=== PATIENT | male | born 1950 | race Caucasian/White ===

== ENCOUNTER → 2018-08-05 | Outpatient (CLI) | payer MEDICARE, OTHER ==
--- NOTE | 2018-08-06 10:04 | MR ---
EXAMINATION TYPE: MR shoulder LT wo con DATE OF EXAM: 08/05/2018 COMPARISON: Outside shoulder x-ray dated 04/01/2018 HISTORY: Pain in left shoulder TECHNIQUE: Multiplanar, multisequence imaging of the left shoulder is performed without contrast. FINDINGS: There is complete loss of joint space of the glenohumeral joint with loss of articular cartilage. The re is a small joint effusion. Grossly the inferior glenohumeral ligament remains intact. Abnormal mar row signal within the glenoid with cystic changes and marrow edema likely reactive due to severe arth ritic change with complete loss of articular cartilage. Degenerative superior and inferior labral tears are suspected. There is hypertrophic spurring and narrowing of the AC joint with impingement of the supraspinatus te ndon and muscle. There is no evidence of retraction of the rotator cuff tendons. Intrasubstance signa l seen along the undersurface of the anterior fibers of the supraspinatus tendon measuring approximat diane 7 mm compatible with a partial undersurface tear. There is fluid surrounding the bicipital tendon which remains within the bicipital groove. Findings c ompatible with tendinosis. Intracapsular portion of the tendon is intact. On axial image 14 there is a 4 mm a bony area signal anterior to the humeral head which may represent a small loose body. Reactive marrow changes involving the superior margin of the humeral head. Within the posterior soft tissues there is a well-circumscribed nodule measuring 1.3 cm on axial imag e 20 posterior to the scapula. There is a small sebaceous cyst correlate clinically. It is not includ ed in the [id number] of the coronal or sagittal images. IMPRESSION: 1. Severe glenohumeral joint arthropathy with complete loss of joint space, reactive marrow edema, an d complete loss of articular cartilage compatible severe arthritic changes. 2. Degenerative labral tears. 3. 1.3 cm subcutaneous soft tissue nodule posterior to the scapula only seen on axial image 20 is cor related with ultrasound to determine if this is related to sebaceous cyst or solid nodule. 4. Impingement secondary to AC joint arthropathy with a partial undersurface tear at the insertion of the supraspinatus tendon measuring 7 mm. No retraction or through thickness tear.
== END | disposition home or self-care (01) ==
LOC: RADMRIMAIN 20:40
PROVIDERS: ATTEND Orthopaedic Surgery
DX: S43.492A Other sprain of left shoulder joint, initial encounter (principal); M19.012 Primary osteoarthritis, left shoulder; M25.812 Other specified joint disorders, left shoulder; M75.112 Incomplete rotator cuff tear or rupture of left shoulder, not specified as traumatic

== ENCOUNTER 2018-09-14 05:50 | Day surgery (SDC) | payer MEDICARE, OTHER ==
[2018-09-09 14:53] VITALS: BMI 29.2
--- NOTE | 2018-09-13 16:27 | HP ---
HISTORY AND PHYSICAL DATE OF SURGERY: 09/14/2018 Pernell Durbin is a 68-year-old patient seen with progressive left shoulder pain. After having treatment options discussed, he elected to proceed with left shoulder arthroscopy. Consent regarding procedure was obtained. Medical clearance was provided by Dr. Palafox. PAST MEDICAL HISTORY: Noncontributory. PAST SURGICAL HISTORY: Left ankle surgery. DAILY MEDICATIONS: Aspirin. ALLERGIES: NONE. SOCIAL HISTORY: Denies tobacco use. PHYSICAL EVALUATION OF THE LEFT SHOULDER: Flexion 110 degrees, abduction 90 degrees, external rotation 30 degrees with weakness. There is tenderness along the anterolateral acromion and rotator cuff insertion site. Impingement sign is positive at 80 degrees. Distal neurovascular exam is intact. RADIOGRAPHS: Radiographs of the left shoulder revealed a type 2 anterior acromion, evidence for acromioclavicular joint osteoarthritis and osteoarthritic change of the glenohumeral joint. MRI of left shoulder revealed osteoarthritic changes, labral tear, partial rotator cuff tear. IMPRESSION: 1. Left shoulder impingement with partial rotator cuff tear. 2. Left shoulder osteoarthritis. PLAN: Left shoulder arthroscopy with arthroscopic decompression, possible rotator cuff repair, possible Merlin procedure and debridement. MMODL / IJN: [id number] /
[~2018-09-14 05:50] MED LIST: DEXAMETHASONE SOD PHOSPHATE 10 MG/ML 1 ML VIAL IV ONE; LACTATED RINGERS 1,000 ML IV SCH; LIDOCAINE 1% 20 ML VIAL (10MG/ML) FOR IV START INTRADERMA PRN; MIDAZOLAM 2 MG/2 ML VIAL IV PRN; ceFAZolin IN SWFI 2 GM/20 ML SYRINGE IVP ONE; fentaNYL (PF) 50 MCG/ML 2 ML AMP IV PRN; fentaNYL (PF) 50 MCG/ML 2 ML AMP IVP PRN
[2018-09-14] MEDS ORDERED: ONDANSETRON 4 MG/2 ML VIAL IVP ONE (06:41)
--- NOTE | 2018-09-14 07:12 | P.ONQ ---
Anesthesiology Proc Note - PNB - Peripheral Nerve Block Performed Left Interscalene Time Out Performed: Yes Procedure Start Time: 06:55 Procedure Stop Time: 07:03 Indication: Acute Post-Operative Pain, Requested by physician Sedation Type: Sedate with meaningful contact maintained Preparation: Sterile Dressing Position: Sitting Catheter: None Needle Types: Facet Needle Size: 50mm (2") Needle Gauge: 21 Technique: Ultrasound Injectate: 0.5% Ropivacaine (see comment for volume) (30 mL) Blood Aspirated: No Pain Paresthesia on Injection Noted: No Resistance on Injection: Normal Events: Uneventful and Well Tolerated
[2018-09-14] MEDS ORDERED: MIDAZOLAM 2 MG/2 ML VIAL ONE (07:25)
[2018-09-14] MEDS ORDERED: LIDOCAINE 1% INJ 10MG/ML (20 ML MDV) ONE (07:25)
[2018-09-14] MEDS ORDERED: SUCCINYLCHOLINE CHLORIDE 100 MG/5 ML SYR IV ONE (07:25)
[2018-09-14] MEDS ORDERED: ROCURONIUM BROMIDE 10 MG/ML 10 ML VIAL IV ONE (07:25)
[2018-09-14] MEDS ORDERED: PROPOFOL 10 MG/ML 20 ML VIAL IV ONE (07:25)
[2018-09-14] MEDS ORDERED: GLYCOPYRROLATE 0.2 MG/ML 2 ML VIAL ONE (07:25)
[2018-09-14] MEDS ORDERED: ePHEDrine SULFATE/0.9% NACL/PF 50 MG/5 ML SYRINGE IV ONE (07:25)
[2018-09-14] MEDS ORDERED: NEOSTIGMINE 1 MG/ML 10 ML VIAL ONE (07:25)
[2018-09-14] MEDS ORDERED: fentaNYL (PF) 50 MCG/ML 2 ML AMP ONE (07:25)
[2018-09-14] MEDS ORDERED: LACTATED RINGERS 1,000 ML IV ONE ×2 (08:51)
[2018-09-14 09:03] VITALS: TEMP 97
--- NOTE | 2018-09-14 09:03 | P.OP ---
Date of Procedure: 09/14/18 Preoperative Diagnosis: Left shoulder impingement Postoperative Diagnosis: 1. Left shoulder impingement 2. Left shoulder acromioclavicular joint osteoarthritis 3. Left shoulder glenohumeral joint osteoarthritis 4. Left shoulder partial long head biceps tendon tear 5. Left shoulder superficial rotator cuff tear 6. Left shoulder superficial labral tear Procedure(s) Performed: 1. Left shoulder arthroscopic subacromial decompression 2. Left shoulder arthroscopic Merlin procedure 3. Left shoulder biceps tenotomy 4. Left shoulder arthroscopic debridement partial rotator cuff tear 5. Left shoulder debridement superficial labral tear Anesthesia: GETA, regional (Interscalene block) Surgeon: Justin Rodriguez Estimated Blood Loss (ml): 10 Pathology: none sent Condition: stable Disposition: PACU Indications for Procedure: 68-year-old patient seen with progressive left shoulder pain. After treatment options were discussed, he elected to proceed with arthroscopy. Operative Findings: See description of procedure Description of Procedure: Patient underwent an interscalene block by department of anesthesia for postoperative pain management. The patient was then taken to the operative suite. The patient underwent a general anesthetic by the department of anesthesia. The patient was placed into a lateral position and secured. There was appropriate padding of the bony prominence. Left shoulder was then prepped and draped in normal sterile orthopedic fashion. We placed the extremity in 10 pounds of longitudinal traction. A posterior incision was now made for a posterior working portal site. The trocar and cannula were inserted into the glenohumeral joint. Arthroscopy was initiated. Spinal needle was now inserted anteriorly, to ascertain the anterior working portal site. An incision was now made in that area, a trocar was inserted followed by a probe. There was advanced grade 4 chondromalacia of both the humeral head and glenoid fossa. There was significant bone exposure on both sides. There was some superficial tearing of the superior and anterior labrum. There was partial tearing hyperemia long head biceps tendon. I debrided the superficial labral tears down to stable tissue. I performed an arthroscopic biceps tenotomy. The residual labrum was stable. Instruments now removed from glenohumeral joint. Utilizing the posterior working portal site, the trocar and cannula were in serted into the subacromial space. Arthroscopy initiated. I made an incision 2 fingerbreadths lateral to the acromion. I introduced my trocar followed by my ArthroCare ablator. I now began ablating thick subacromial bursal tissue, which exposed the undersurface of the anterior acromion. There was diminished subacromial space. There was a very prominent anterior acromion. A motorized bur was introduced and a subacromial decompression was performed. I also excised some osteophytes off the inferior aspect of the distal clavicle. The AC joint was visualized and noted to be fairly arthritic. The motorized bur was introduced in the anterior portal site and a Merlin procedure was performed without difficulty, decompressing the AC joint nicely. I turned my attention to the rotator cuff. There was some superficial tearing along the distal supraspinatus area. I debrided that area with a motorized shaver. The residual rotator cuff tendon tissue appeared stable. There was no perforation. I now injected 1 mL Renue intra-articular. Instruments now removed from the portal sites. All portal sites were approximated with nylon suture. Sterile dressings were applied followed by a shoulder sling. The patient was awakened, transferred to a bed, and taken to recovery in stable condition.
[2018-09-14 09:11] VITALS: RESP 16
[2018-09-14 10:07] VITALS: BP 121/77; PULSE 61
== END 2018-09-14 10:48 | disposition home or self-care (01) ==
LOC: OR 05:50
PROVIDERS: ATTEND Orthopaedic Surgery
DX: S43.492A Other sprain of left shoulder joint, initial encounter (principal); S46.112A Strain of muscle, fascia and tendon of long head of biceps, left arm, initial encounter; X58.XXXA Exposure to other specified factors, initial encounter; M75.112 Incomplete rotator cuff tear or rupture of left shoulder, not specified as traumatic; M19.012 Primary osteoarthritis, left shoulder; M94.212 Chondromalacia, left shoulder; M25.712 Osteophyte, left shoulder; I10 Essential (primary) hypertension; K21.9 Gastro-esophageal reflux disease without esophagitis; Z79.82 Long term (current) use of aspirin; Z79.899 Other long term (current) drug therapy; Z87.891 Personal history of nicotine dependence
CPT/HCPCS: 64415; 29824; 29826; C1765; J2250; J1100; J2710; J2405; J2001; J3010; J0330; J2704; J0690

== ENCOUNTER 2020-11-21 10:23 | Day surgery (SDC) | payer MEDICARE, OTHER ==
[2020-11-20 08:44] VITALS: BMI 29.9
[~2020-11-21 10:23] MED LIST changes: +ALPRAZolam 0.25 MG TAB PO PRN; +ALPRAZolam 0.5 MG TAB PO PRN; +ASPIRIN 325 MG TAB PO STA; +ATORVASTATIN 80 MG TAB PO STA; -DEXAMETHASONE SOD PHOSPHATE 10 MG/ML 1 ML VIAL IV ONE; +HEPARIN SODIUM,PORCINE 10,000 UNIT in SODIUM CHLORIDE 0.9% 1,000 ML IRRIGATION PRN; +HEPARIN SODIUM,PORCINE 2,500 UNIT in SODIUM CHLORIDE 0.9% 250 ML IRRIGATION PRN; -LACTATED RINGERS 1,000 ML IV SCH; -LIDOCAINE 1% 20 ML VIAL (10MG/ML) FOR IV START INTRADERMA PRN; -MIDAZOLAM 2 MG/2 ML VIAL IV PRN; +NITROGLYCERIN SL TABS 0.4 MG TAB SUBLINGUAL PRN; +SODIUM CHLORIDE 0.9% 1,000 ML in EMPTY BAG 1 BAG IV ONE; -ceFAZolin IN SWFI 2 GM/20 ML SYRINGE IVP ONE; -fentaNYL (PF) 50 MCG/ML 2 ML AMP IV PRN; -fentaNYL (PF) 50 MCG/ML 2 ML AMP IVP PRN
[2020-11-21] MEDS ORDERED: VERAPAMIL 2.5 MG/ML 2 ML AMP ONE (12:10)
[2020-11-21] MEDS ORDERED: HEPARIN SODIUM 1,000 UN/ML (10ML VL) ONE (12:10)
[2020-11-21] MEDS ORDERED: fentaNYL (PF) 50 MCG/ML 2 ML AMP ONE (12:11)
[2020-11-21] MEDS ORDERED: LIDOCAINE 1% INJ 10MG/ML (20 ML MDV) ONE (12:11)
[2020-11-21] MEDS ORDERED: VERAPAMIL SYRINGE (5 MG/10 ML) INTRAARTER ONE (12:59)
[2020-11-21] MEDS ORDERED: fentaNYL (PF) 50 MCG/ML 2 ML AMP IV ONE (12:59)
[2020-11-21] MEDS ORDERED: LIDOCAINE 1% INJ 10MG/ML (20 ML MDV) SQ ONE (12:59)
[2020-11-21] MEDS ORDERED: HEPARIN SODIUM 1,000 UN/ML (10ML VL) IV ONE (13:05)
[2020-11-21] MEDS ORDERED: PRASUGREL 10 MG TAB ONE ×2 (13:09)
[2020-11-21] MEDS ORDERED: PRASUGREL 10 MG TAB PO ONE (13:13)
[2020-11-21] MEDS ORDERED: NITROGLYCERIN 1000MCG/10ML SYRINGE INTRACORON ONE (13:21)
[2020-11-21] MEDS ORDERED: IOPAMIDOL-370 125ML BTL INJ ONE (13:26)
[2020-11-21] MEDS ORDERED: NITROGLYCERIN SL TABS 0.4 MG TAB SUBLINGUAL PRN (13:34)
[2020-11-21] MEDS ORDERED: ATROPINE SULFATE 0.1 MG/ML 10ML SYRINGE IV PRN (13:34)
[2020-11-21] MEDS ORDERED: ZOLPIDEM 5 MG TAB PO PRN (13:34)
[2020-11-21] MEDS ORDERED: MAG HYDROX/AL HYDROX/SIMETH 30 ML CUP PO PRN (13:34)
[2020-11-21] MEDS ORDERED: RX INFO: IV CONTRAST WAS GIVEN 1 EACH MISC MISCELLANE PRN (13:34)
[2020-11-21] MEDS ORDERED: SODIUM CHLORIDE 0.9% 1,000 ML IV SCH (13:45)
[2020-11-21] MEDS ORDERED: ACETAMINOPHEN TAB 325 MG TAB PO PRN (15:39)
--- NOTE | 2020-11-21 17:13 | CC ---
CARDIAC CATHETERIZATION REPORT Mr. Durbin is a 70-year-old male with a history of hypertension who recently has been complaining of exertional chest discomfort that improved with nitroglycerin. His EKG showed T-wave inversion inferiorly. In view of that, recommendation was made regarding cardiac catheterization. The procedure as well as the risks and the complications were discussed with the patient who is in full understanding and agreement. PROCEDURE IN DETAIL: Patient was brought to prosthetics lab technician in the fasting semi-sedated state after receiving fentanyl and Benadryl and achieving moderate conscious sedated state. Using Xylocaine anesthesia and Seldinger technique, a 6-Burkinan sheath was introduced in the right radial artery. Selective right and left coronary angiography performed using 5-Burkinan 3.5 bend right and left Panchito catheter. Multiple views of the coronary artery including hemiaxial views obtained. Following that 5-Burkinan tight pigtail catheter introduced into the left ventricle and pressures were calculated. Following that, catheter removed, images were reviewed. FINDINGS: LEFT MAIN: This is a short size vessel, bifurcating into left circumflex, left anterior descending artery. Left main coronary artery has no evidence of high-grade stenosis. LEFT ANTERIOR DESCENDING ARTERY: This is a large-sized vessel, tapers down distal third, giving rise to 2 diagonal branch. The left anterior descending artery has intimal disease proximal 10-20 percent in the mid segment, after the second diagonal branch has a 30% to 40% plaque. The rest of the vessel has mild intimal disease without any evidence of high-grade stenosis. LEFT CIRCUMFLEX: This is a nondominant vessel giving rise to 2 obtuse marginal branch. The left circumflex has mild intimal disease of 10-20 percent predominantly in the second obtuse marginal branch. The rest of the vessel has no high-grade stenosis. RIGHT CORONARY ARTERY: This is a large dominant vessel, bifurcating distally PDA and posterolateral segment and branches. The proximal right coronary artery at the takeoff of the conus branch has a 95% stenosis. The rest of the vessel has mild intimal disease without any evidence of high-grade stenosis. LEFT VENTRICULOGRAM: Left ventriculogram was not performed. HEMODYNAMICS: There was no gradient across the aortic valve. The left ventricle end-diastolic pressure was 12-14 mmHg. CONCLUSION: 1. Critical stenosis in the proximal right coronary artery. 2. Mild disease in the LAD and left circumflex. RECOMMENDATION: In view of finding anatomy, I recommend proceeding with angioplasty and stenting of the RCA. The procedure as well as the risks and the complications were discussed with the patient who is in full understanding and agreement. MMMICHELLE / IJN: [id number] /
--- NOTE | 2020-11-21 17:17 | CC ---
CARDIAC CATHETERIZATION REPORT Mr. Durbin 70-year-old male with a known history of hypertension who presented with new onset chest discomfort, had T-wave inversion inferiorly, underwent cardiac catheterization, was found to have critical stenosis involving the right coronary artery. In view of that, recommendation regarding angioplasty and stenting, the procedure as well as the risks and the complications were discussed with the patient who is in full understanding and agreement. PROCEDURE: Six-Beninese JR4 guiding catheter introduced in the system. After stenting the right coronary ostium, a 0.014 balanced medium weight J-wire was advanced across the lesion, positioned distally, then a 4.0 x 18 mm Xience Ashia stent was advanced, deployed and post site 16 atmospheres after the last inflation. After appropriate wait, the balloon and guide wire were withdrawn back in the guiding catheter. Images were obtained, repeated. Those images reveal stable. Successful stenting. At that point, the guiding catheter, the balloon and the guide wire were removed, the sheaths were removed. The patient was returned to his room in stable condition. There was no immediate complication. Of note, the patient received 7000 units intravenous heparin, as well as oral loading dose of Effient. He had chest discomfort and EKG changes with the inflation that resulted in procedure. His ACT was monitored. FINDINGS: Successful stenting of the proximal right coronary artery with reduction of stenosis from 95% to 0%. RECOMMENDATION: Patient be continued on aspirin, Effient, beta mehdi, NARESH and statin. The importance of dual antiplatelet treatment were discussed with the patient and his family and they are in full understanding and agreement. Duration of procedure is 27 minutes. MMODL / IJN: [id number] /
--- NOTE | 2020-11-21 17:25 | LTR ---
Dear Dr. Palafox, I had the pleasure to perform cardiac catheterization and coronary angioplasty and stenting on Mr. Durbin at [facility] on 11/21 and a full procedure note will be forwarded to you. In brief, he was found to have critical stenosis involving the proximal right coronary artery and had successful stenting of that vessel using a drug-eluting stent. I hope this procedure will stabilize his status and I will keep you updated on his progress. I thank you again for allowing me to participate in this patient's care. Please call if any questions. Sincerely, Angie Eugene MD. MIKAELA / JANETTEN: [id number] / MTDLata
[2020-11-21] MEDS ORDERED: ATORVASTATIN 80 MG TAB PO SCH (21:00)
[2020-11-21] MEDS ORDERED: BISOPROLOL-HCTZ 5-6.25 MG 1 EACH TAB PO SCH (21:00)
[2020-11-22 05:29] LABS: African American GFR (CKD) >90 (>60 ml/min/1.73 sqM); Anion Gap 7 mmol/L; Blood Urea Nitrogen 18 mg/dL (9-20); Carbon Dioxide 26 mmol/L (22-30); Chloride 108 mmol/L (98-107); Glucose 105 mg/dL (74-99); Non-African American GFR(CKD) >90 (>60 ml/min/1.73 sqM); Potassium 4.1 mmol/L (3.5-5.1); Sodium 141 mmol/L (137-145)
[2020-11-22] MEDS ORDERED: PANTOPRAZOLE 40 MG TABLET PO SCH (07:30)
[2020-11-22 07:56] VITALS: BP 132/76; PULSE 51; RESP 18; TEMP 97.8
[2020-11-22] MEDS ORDERED: ASPIRIN 81 MG PO SCH (09:00)
[2020-11-22] MEDS ORDERED: PRASUGREL 10 MG TAB PO SCH (09:00)
--- NOTE | 2020-11-22 12:10 | PN ---
PROGRESS NOTE Mr. Durbin is a 70-year-old male who presented with symptoms of progressive unstable angina pectoris with EKG changes, underwent cardiac catheterization and was found to have subtotally occluded proximal RCA, underwent stenting of that vessel. He is doing well this morning. He denies any chest pain. His breathing has been stable. He denies any dizziness or palpitation. He continues to be on aspirin once a day, Lipitor 80 mg daily, bisoprolol hydrochlorothiazide 5-6.25 mg daily and Effient 10 mg a day. PHYSICAL EXAMINATION: Blood pressure 117/70 with a heart rate in in the 60s. Lungs: Clear. Heart: Regular rate and rhythm, S1, S2. No S3. No rub. Abdomen: Soft nontender. Extremities: No edema. Right radial pulse intact. LAB DATA: Lab data revealed BUN and creatinine of 18 and 0.82. His EKG shows no acute changes. IMPRESSION: 1. Status post stenting of the RCA, stable. 2. Hypertension. RECOMMENDATIONS: Patient will be discharged home today and followed as an outpatient. MMODL / IJN: [id number] /
[2020-11-22 13:33] LABS: Chol/HDL Ratio 5.86
== END 2020-11-22 09:20 | disposition home or self-care (01) ==
LOC: CATHCVL 10:23 → 6NMEDSUR 12:25 → CATHCVL 11-22 09:20
PROVIDERS: ATTEND Internal Medicine Interventional Cardiology
DX: I25.10 Atherosclerotic heart disease of native coronary artery without angina pectoris (principal); Z82.49 Family history of ischemic heart disease and other diseases of the circulatory system; I10 Essential (primary) hypertension; Z79.899 Other long term (current) drug therapy; Z79.82 Long term (current) use of aspirin; Z87.891 Personal history of nicotine dependence
CPT/HCPCS: 93458; 80061; 80048; C9600; C1769 ×2; C1887; C1894; C1874; J2001; J3010; J1644; Q9967

== ENCOUNTER 2023-10-04 05:41 | Day surgery (SDC) | payer MEDICARE, OTHER ==
[2023-09-30 14:04] VITALS: BMI 29.2
[2023-10-04] MEDS ORDERED: HEPARIN SODIUM,PORCINE 10,000 UNIT in SODIUM CHLORIDE 0.9% 1,000 ML IRRIGATION PRN (05:52)
[2023-10-04] MEDS ORDERED: ASPIRIN 325 MG TAB PO STA (05:52)
[2023-10-04] MEDS ORDERED: ALPRAZolam 0.25 MG TAB PO PRN (05:52)
[2023-10-04] MEDS ORDERED: ALPRAZolam 0.5 MG TAB PO PRN (05:52)
[2023-10-04] MEDS ORDERED: HEPARIN SODIUM,PORCINE (1 ML) 2,500 UNIT in SODIUM CHLORIDE 0.9% 250 ML IRRIGATION PRN (05:52)
[2023-10-04] MEDS ORDERED: NITROGLYCERIN SL TABS 0.4 MG TAB SUBLINGUAL PRN (05:52)
[2023-10-04 06:31] VITALS: RESP 18
[2023-10-04] MEDS: SODIUM CHLORIDE 0.9% 1,000 ML in EMPTY BAG 1 BAG IV SCH (06:31)
[2023-10-04 06:48] LABS: Basophils # (A) 0.1 k/uL (0-0.2); Basophils % (A) 1 %; Eosinophils # (A) 0.5 k/uL (0-0.7); Eosinophils % (A) 5 %; HCT 44.7 % (39.0-53.0); HGB 14.8 gm/dL (13.0-17.5); Lymphocytes # (A) 3.7 k/uL (1.0-4.8); Lymphocytes % (A) 35 %; MCH 30.8 pg (25.0-35.0); MCHC 33.1 g/dL (31.0-37.0); MCV 93.1 fL (80.0-100.0); Mean Platelet Volume 8.3; Monocytes # (A) 0.6 k/uL (0-1.0); Monocytes % (A) 6 %; Neutrophils # (A) 5.3 k/uL (1.3-7.7); Neutrophils % (A) 51 %; Platelet Count 187 k/uL (150-450); RDW 12.6 % (11.5-15.5); WBC 10.5 k/uL (3.8-10.6)
[2023-10-04] MEDS ORDERED: VERAPAMIL 2.5 MG/ML 2 ML AMP ONE (07:14)
[2023-10-04] MEDS ORDERED: LIDOCAINE 1% INJ 10MG/ML (20 ML MDV) ONE (07:14)
[2023-10-04 07:18] LABS: African American GFR (CKD) >90 (>60 ml/min/1.73 sqM); Anion Gap 4 mmol/L; Blood Urea Nitrogen 14 mg/dL (9-20); Calcium 9.6 mg/dL (8.4-10.2); Carbon Dioxide 30 mmol/L (22-30); Chloride 107 mmol/L (98-107); Glucose 106 mg/dL (74-99); Non-African American GFR(CKD) 88 (>60 ml/min/1.73 sqM); Potassium 3.9 mmol/L (3.5-5.1); Sodium 141 mmol/L (137-145)
[2023-10-04] MEDS ORDERED: HEPARIN SODIUM 1,000 UN/ML (10ML VL) ONE (07:33)
[2023-10-04] MEDS ORDERED: fentaNYL (PF) 50 MCG/ML 2 ML AMP ONE (07:34)
[2023-10-04] MEDS: fentaNYL (PF) 50 MCG/1 ML VIAL IVP ONE (07:34)
[2023-10-04] MEDS: LIDOCAINE 1% INJ 10MG/ML (20 ML MDV) SQ ONE (07:35)
[2023-10-04] MEDS: VERAPAMIL SYRINGE (5 MG/10 ML) INTRAARTER ONE (07:40)
[2023-10-04] MEDS: HEPARIN SODIUM 1,000 UN/ML (10ML VL) IV ONE (07:44)
[2023-10-04] MEDS: IOPAMIDOL-370 100ML BTL INJ ONE (07:55)
[2023-10-04] MEDS ORDERED: RX INFO: IV CONTRAST WAS GIVEN 1 EACH MISC MISCELLANE PRN (08:06)
[2023-10-04] MEDS ORDERED: NON FORMULARY DRUG (Omeprazole [Omeprazole] 20 MG Capsule.Dr) PO PRN (08:07)
--- NOTE | 2023-10-04 08:11 | P.CARDCATH ---
Date of Procedure: 10/04/23 Description of Procedure: Cardiac Catheterization: The patient is a 73-year-old male with a known history of CAD status post stenting of the RCA in 2020 history of hypertension and hyperlipidemia who recently underwent an MPI that showed a moderate reversible defect in the inferior wall. Recommendations were made regarding cardiac catheterization, the risks and the complications were discussed with the patient who is in full understanding and agreement. Procedure Description: Patient was brought to chemical laboratory technician in fasting semi-sedated state after receiving Fentanyl and Benadryl achieiving moderate conscious sedated state. Using Xylocaine Anesthesia and modified Seldinger technique, a 6-Argentine sheath was introduced in the right radial artery . Subsequently, selective coronary angiography was performed using a 5-Argentine 3.5 bend Panchito catheter. Multiple views of the coronary artery including hemiaxial views were obtained. The 5 Argentine pigtail catheter was used to cross the aortic valve and LVEDP was calculated. Following that, catheter and sheath were removed. Hemostasis was obtained with deployment of vascular band . There was no immediate complication. Patient was returned to room in stable condition. Of note, the patient received a total of 5000 units of intravenous heparin as well as intra-arterial verapamil. Findings: Fluoroscopy: Calcification of the LAD was noted Left main: This is a short size vessel, bifurcating into LAD and left circumflex, left main has no obstructive disease LAD: This is a large size vessel giving rise to a moderately sized diagonal branch in the midsegment. The LAD tapers down and distal third. There is 20 to 30% plaque in the midsegment with no high-grade stenosis. Left circumflex: This is a nondominant vessel, giving rise to 2 obtuse marginal branch. The left circumflex has mild intimal disease of 10 to 20% with no high- grade stenosis RCA: This is a large dominant vessel bifurcating into PDA and PLV the stented segment in the proximal RCA is patent. There is a 20 to 30% plaque distal to the stent. There is mild intimal disease in the PDA and the PLV with no high- grade stenosis. Left Ventriculogram: Not performed Hemodynamics: There was no gradient across aortic valve, LVEDP was 12-14 mmHg Conclusion: 1. Patent stent in the RCA 2. Mild disease in the LAD and left circumflex 3. Right dominance 4. Normal LVEDP Recommendations: I have recommended to continue medical therapy, I see no evidence of high-grade stenosis. The findings and the recommendations were discussed with the patient and the family and they were in full understanding and agreement. Duration of sedation is 19 minutes.
[2023-10-04] MEDS ORDERED: SODIUM CHLORIDE 0.9% 1,000 ML IV SCH (08:15)
[2023-10-04] MEDS ORDERED: EZETIMIBE 10 MG TAB PO SCH (09:00)
[2023-10-04] MEDS ORDERED: NON FORMULARY DRUG (Rosuvastatin 20 MG Tablet) PO SCH (09:00)
[2023-10-04] MEDS ORDERED: BISOPROLOL-HCTZ 5-6.25 MG 1 EACH TAB PO SCH (09:00)
[2023-10-04] MEDS ORDERED: NON FORMULARY DRUG (Aspirin Ec 81 MG Tablet.Dr) PO SCH (09:00)
[2023-10-04 11:24] VITALS: BP 138/68; PULSE 54
== END 2023-10-04 11:25 | disposition home or self-care (01) ==
LOC: CATHCVL 05:41
PROVIDERS: ATTEND Internal Medicine Interventional Cardiology
DX: I25.10 Atherosclerotic heart disease of native coronary artery without angina pectoris (principal); I10 Essential (primary) hypertension; E78.5 Hyperlipidemia, unspecified; F10.90 Alcohol use, unspecified, uncomplicated; Z95.5 Presence of coronary angioplasty implant and graft; Z79.82 Long term (current) use of aspirin; Z87.891 Personal history of nicotine dependence; Z79.899 Other long term (current) drug therapy
CPT/HCPCS: 99152; 93458; 80048; 85025; C1769 ×2; C1894; J2001; J1644; Q9967; J3010